=== PATIENT | female | born 1945 | race Caucasian/White ===

== ENCOUNTER 2019-07-05 16:09 | Emergency (ER) | payer MEDICARE, BC ==
[2019-07-05] MEDS ORDERED: Lidocaine 1% 20 ML MDV ONE (16:39)
[2019-07-05] MEDS ORDERED: Bupivacaine 0.5% 10 ML VIAL ONE (16:39)
[2019-07-05] MEDS ORDERED: HYDROcodone/Acetaminophen 5/325 mg Tablet ONE (17:28)
--- NOTE | 2019-07-05 17:32 | RAD ---
LEFT FOREARM 3 VIEWS: Date: 07/05/19 INDICATION: Trauma with injury. FINDINGS: There is a transverse, mildly comminuted, displaced fracture involving the distal radius. The major d istal fragment shows dorsal displacement and angulation. Associated fracture of the ulnar styloid with displacement. IMPRESSION: Fracture distal radius and ulna. POS: AGW
--- NOTE | 2019-07-05 18:21 | RAD ---
Radiograph left wrist 3 views: DATE: 07/05/2019 Time: 6:08 PM HISTORY: Status post first reduction attempt of traumatic distal radial fracture in 74-year-old female. COMPARISON: Forearm radiograph of 07/05/2019 5:02 PM FINDINGS: The wrist is now in a splint. Comminuted fracture of the distal radial metaphysis and epiphysis, has slightly improved alignment now, now with only 50% bone width dorsal displacement of major distal fragment, and interval improvement of the dorsal angulation and improvement in foreshortening. There is currently no longer displacement in the transverse dimension. The ulnar styloid fracture alignment has significantly improved. IMPRESSION: Interval improvement in alignment of the acute, traumatic, displaced distal radial metaphyseal and ep iphyseal fracture.
== END 2019-07-05 18:40 | disposition home or self-care (01) ==
LOC: SCSER 16:09
DX: S52.532A Colles' fracture of left radius, initial encounter for closed fracture (principal); S50.12XA Contusion of left forearm, initial encounter; S60.041A Contusion of right ring finger without damage to nail, initial encounter; S80.02XA Contusion of left knee, initial encounter; F31.9 Bipolar disorder, unspecified; Z79.899 Other long term (current) drug therapy; Z79.01 Long term (current) use of anticoagulants; W18.30XA Fall on same level, unspecified, initial encounter
CPT/HCPCS: 25605; J2001; J3490